=== PATIENT | female | born 1975 | race African-American/Black ===

== ENCOUNTER 2020-09-10 18:26 | Emergency (ER) | payer MEDICARE, MEDICAID ==
[~2020-09-10] VITALS: Ht 165.1 cm; Wt 97.5 kg
[2020-09-10] MEDS ORDERED: HYDROCHLOROTH12.5 M1 PO (19:39)
[2020-09-10 20:13] VITALS: BP 189/94
== END 2020-09-10 20:14 | disposition home or self-care (01) ==
LOC: M.ERS 18:26
DX: M79.605 Pain in left leg (principal); I10 Essential (primary) hypertension; Z86.73 Personal history of transient ischemic attack (TIA), and cerebral infarction without residual deficits

== ENCOUNTER 2021-04-13 15:28 | Inpatient (IN) | payer OTHER, MEDICAID ==
[~2021-04-13] VITALS: Ht 162.6 cm; Wt 103.6 kg
--- NOTE | ~2021-04-13 | CON ---
[address] [address] CONSULTATION Name: SHANNAN ARROYO Room: [place] [address] ADM IN M.R.#: [id number] Admission: 04/13/21 Attend Phys: Germain Goncalves MD Discharge: Date of : 77 Report #: [id number] THIS REPORT FOR: cc: Harrison Martinez MD, Jinming MD Khosla, Parveen K. MD ~ DATE OF CONSULTATION: 04/14/2021 HISTORY OF PRESENT ILLNESS: A 45-year-old female patient who provides some history, but many times, she says "ask my mom." I could not get hold of the patient's mom. 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 In 2014, she had a stroke, which affected the left side of the body. She was in [facility]. There was a blood clot in her head, which was extracted by intervention that time according to her. She made a fairly good recovery and she still has some residual. She started having numbness on the left side. Her history is not very clear, but numbness involved the leg, but to me, she tells me it also involved the trunk and to some extent the face. It has not affected her motor system. REVIEW OF SYSTEMS: She was diagnosed with diabetes and hypercholesterolemia. She was started on some medication. She also has high blood pressure according to her. She started having headache. I do not know if blood pressure medications were changed. When she came in here, her blood pressure was 214/125, it has normalized now. She said she has a mild diabetes. She has a history of hypertension, hyperlipidemia and obesity. This was a relevant 14-point review of systems. She was not complaining of any eye, ENT, cardiac, respiratory, GI, , musculoskeletal, constitutional, dermatological, hematological, psychiatric, throat, allergic symptom associated with present symptomatology. PAST MEDICAL HISTORY: Positive for what looks like a large stroke in the right cerebral hemisphere. FAMILY HISTORY: According to her is negative for any early age stroke. SOCIAL HISTORY: She says she smokes. She was smoking when the stroke happened, but she never stopped that. The record indicates that she underwent CT and CT angiogram, which I will describe later. PHYSICAL EXAMINATION: NEUROLOGIC: Indicate that she was alert, responsive, able to follow simple and complex commands. She believes her memory, fund of knowledge is at her baseline. Cranial nerve examination was mostly unremarkable. I did not see any prominent hemianopsia. Neuromuscular examination indicates some deformity of the right hand, which is present since her strokes. She said the sensation looks different on the left side as compared to the right side, [place] [address] CONSULTATION Name: SHANNAN ARROYO Room: [address] IN [facility]#: [id number] Admission: 04/13/21 Attend Phys: Germain Goncalves MD Discharge: Date of : 77 Report #: [id number] on both sides. It takes her little longer to appreciate the position sense on the left side as compared to the right side, but most of the time, she is able to tell that. There is no cerebellar sign. ABDOMEN: I could not look at the patient's fundus. CARDIAC: Appears noncontributory. LUNGS: No respiratory difficulty. EXTREMITIES: No edema, cyanosis or jaundice. HEENT: Her vision and hearing looks adequate. LABORATORY DATA: Lab indicated a normal white count. DIAGNOSTIC DATA: CT and CT angio was reviewed and there is really no large vessel cut off. IMPRESSION AND PLAN: This patient had a prior stroke. I do not know what the etiology of that stroke was. I do not know how much workup she had in that regard. Present symptoms are not very impressive, they are mainly subjective symptoms. I have ordered an MRI to look at. Rest of the workup will depend upon what we find on those testing and what we find on [facility] testing if we can ever get the [facility] testing. All of it was discussed with the patient in detail and I talked to the patient with the hospitalist also. More than 50 minutes of time was spent taking care of this patient today and majority was spent counseling and coordinating. By: 1100 [id number] Ball MD /nt
[~2021-04-13 15:28] MED LIST: HYDROCHLOROTH12.5 M1 PO
[2021-04-13 15:41] VITALS: BP 214/125
[2021-04-13 16:44] LABS: ABSOLUTE LYMPHOCYTES 0.6 thou/uL (0.8-5.3); ABSOLUTE MONOCYTES 0.9 thou/uL (0.0-1.2); ABSOLUTE NEUTROPHILS 6.5 thou/uL (1.6-8.1); BASOPHILS 0.6 %; EOSINOPHILS 0.6 %; HEMATOCRIT 43.4 % (37.0-47.0); LYMPHOCYTES 7.1 %; MCH 30.9 pg (26.0-34.0); MCHC 34.5 g/dL (28.0-37.0); MCV 89.7 fL (80.0-100.0); MONOCYTES 10.8 %; MPV 8.4 fl. (7.2-11.1); NUCLEATED RBCS 0 /100WBC; PLATELET COUNT* 251 thou/uL (150-400); POLYS 80.9 %; RBC 4.84 mil/uL (4.20-5.00); RDW-CV 13.5 % (10.5-14.5)
[2021-04-13 16:54] LABS: CALCIUM 8.6 mg/dL (8.5-10.1); CREATININE 0.7 mg/dL (0.6-1.3); POTASSIUM 4.3 mmol/L (3.5-5.1)
--- NOTE | 2021-04-13 19:15 | NUR ---
PT IN CT AT THIS TIME.
--- NOTE | 2021-04-13 19:34 | NUR ---
40 ML IV DYE GIVEN IN RT AC, IV INFILTRATED 80ML KERRI DYE GIVEN IN NEW IV, LT AC. CALLED AND NOTIFIED RENETTA OF INFILTRATION, NOTIFIED DAVID OF NEW IV ACCESS. (SHIFT/NURSE CHANGE) -JW
[2021-04-14] VITALS (8 sets, daily range): BP systolic 133–169; BP diastolic 78–108
--- NOTE | 2021-04-14 09:18 | EKG ---
[place] [address] ELECTROCARDIOGRAM REPORT Name: SHANNAN ARROYO Room: [place] [address] ADM IN [facility]#: [id number] Admission: 04/13/21 Attend Phys: Germain Goncalves, Discharge: Date of : 77 Date of Service: 04/13/21 1631 Report #: [id number] THIS REPORT FOR: //name// [facility] ED Test Date: 2021-04-13 Test Time: 16:31:14 Pat Name: SHANNAN ARROYO Department: Room: [facility] Gender: F Relationship Assoc: BARBARA : 1975 Requested By: Senthil Rose Order Number: [id number] MD: Raphael Schroeder Measurements Intervals [place] Rate: 99 P: 75 SD: 170 QRS: 41 QRSD: 91 T: 35 QT: 330 QTc: 424 Interpretive Statements Sinus rhythm Probable left atrial enlargement No previous ECG available for comparison Electronically Signed On 04-14-2021 9:18:44 [employer] by Raphael Schroeder [email or web address] <ELECTRONICALLY SIGNED> By: Raphael Schroeder MD, [facility] 04/14/21 0918 1631 1631 Raphael Schroeder MD, [facility] /EPI
[2021-04-14 11:14] LABS: APTT 33.1 Seconds (25.0-31.3)
[2021-04-14 11:17] LABS: ALBUMIN 3.6 g/dL (3.4-5.0); ALKALINE PHOSPHATASE 72 U/L (46-116); ANION GAP 10 mmol/L (7-16); BUN 9 mg/dL (7-18); CALCIUM 8.6 mg/dL (8.5-10.1); CHLORIDE 101 mmol/L (98-107); CHOLESTEROL 137 mg/dL (<200); CO2 27 mmol/L (21-32); CREATININE 0.7 mg/dL (0.6-1.3); GLUCOSE 188 mg/dL (70-99); HDL CHOLESTEROL 41 mg/dL (>40); LDL CHOLESTEROL 80 mg/dL (<100); POTASSIUM 3.8 mmol/L (3.5-5.1); SERUM ASSESSMENT Clear; SGOT 62 U/L (15-37); SGPT 78 U/L (30-65); SODIUM 138 mmol/L (136-145); TC:HDL 3.3 Ratio (Not establshd); TOTAL BILIRUBIN 0.2 mg/dL (<0.1-1.0); TOTAL PROTEIN 7.8 g/dL (6.4-8.2); TRIGLYCERIDE 82 mg/dL (<150); VLDL 16 mg/dL (<40)
--- NOTE | 2021-04-14 12:58 | 2DMMODE ---
[place] [address] 2 D/M-MODE ECHOCARDIOGRAM Name: SHANNAN ARROYO Angie Room: [place] [address] ADM IN [facility]#: [id number] Admission: 04/13/21 Attend Phys: Germain Goncalves, Discharge: Date of : 77 Date of Service: 04/14/21 1258 Report #: [id number] THIS REPORT FOR: cc: Harrison Martinez MD, Jinming MD Holkins, John M. MD [facility] ~ APPROVED REPORT Study performed: 04/14/2021 11:17:19 EXAM: Comprehensive 2D, Doppler, and color-flow Echocardiogram Patient Location: In-Patient Room #: er Status: routine BSA: 2.06 HR: 71 bpm BP: 133/78 mmHg Rhythm: NSR Other Information Study Quality: Good Indications CVA/TIA Echo Enhancing Agent Indication: Rule out Shunt Agent(s) / Amount(s) Used: Agitated Saline 10 cc 2D Dimensions IVSd: 10.83 (7-11mm) LVOT Diam: 19.23 (18-24mm) LVDd: 39.66 mm PWd: 9.20 (7-11mm) Ascending Ao: 30.20 (22-36mm) LVDs: 26.85 (25-40mm) Aortic Root: 28.92 mm Volumes Left Atrial Volume (Systole) LA ESV Index: 20.10 mL/m2 Aortic Valve AoV Peak Leandro.: 1.44 m/s AO Peak Gr.: 8.25 mmHg LVOT Max P.97 mmHg AO Mean Gr.: 4.66 mmHg LVOT Mean P.34 [place] [address] 2 D/M-MODE ECHOCARDIOGRAM Name: CRUZDIANNA MILANSHANNAN R Room: [address] IN ..#: [id number] Admission: 04/13/21 Attend Phys: Germain Goncalves, Discharge: Date of : 77 Date of Service: 04/14/21 1258 Report #: [id number] LVOT Max V: 1.11 m/s AO V2 VTI: 26.13 cm LVOT Mean V: 0.70 m/s SAVANNA (VTI): 2.43 cm2 LVOT V1 VTI: 21.83 cm Mitral Valve E/A Ratio: 1.35 MV Decel. Time: 198.91 ms MV E Max Leandro.: 0.86 m/s MV PHT: 57.68 ms MVA (PHT): 3.81 cm2 TDI E/Lateral E': 7.82 E/Medial E': 9.56 Medial E' Leandro.: 0.09 m/s Lateral E' Leandro.: 0.11 m/s Pulmonary Valve PV Peak Leandro.: 0.92 m/s PV Peak Gr.: 3.41 mmHg Left Ventricle The left ventricle is normal size. There is normal LV segmental wall motion. There is normal left ventricular wall thickness. Left ventricular systolic function is normal. The left ventricular ejection fraction is within the normal range. LVEF is 55-60%. The left ventricular diastolic function is normal. Right Ventricle The right ventricle is normal size. The right ventricular systolic function is normal. Atria The left atrium size is normal. The interatrial septum is intact with no evidence for an atrial septal defect. The right atrium size is normal. Aortic Valve Mild aortic valve sclerosis. No aortic regurgitation is present. There is no aortic valvular stenosis. Mitral Valve The mitral valve is normal in structure. There is no mitral valve regurgitation noted. No evidence of mitral valve stenosis. Tricuspid Valve The tricuspid valve is normal in structure. [place] [address] 2 D/M-MODE ECHOCARDIOGRAM Name: SHANNAN ARROYO Room: [address] IN [facility]#: [id number] Admission: 04/13/21 Attend Phys: Germain Goncalves, Discharge: Date of : 77 Date of Service: 04/14/21 1258 Report #: [id number] Pulmonic Valve The pulmonary valve is normal in structure. There is no pulmonic valvular regurgitation. Great Vessels The aortic root is normal in size. IVC is normal in size and collapses >50% with inspiration. Pericardium There is no pericardial effusion. <Conclusion> The left ventricle is normal size. There is normal left ventricular wall thickness. Left ventricular systolic function is normal. The left ventricular ejection fraction is within the normal range. LVEF is 55-60%. The left ventricular diastolic function is normal. The right ventricle is normal size. The left atrium size is normal. Mild aortic valve sclerosis. No aortic regurgitation is present. There is no aortic valvular stenosis. The mitral valve is normal in structure. The tricuspid valve is normal in structure. IVC is normal in size and collapses >50% with inspiration. There is no pericardial effusion. There is normal LV segmental wall motion. The interatrial septum is intact with no evidence for an atrial septal defect. <ELECTRONICALLY SIGNED> By: Raphael Schroeder MD, FACC 04/14/21 1258 1258 1258 Raphael Schroeder MD, FACC /INF
[2021-04-14] MEDS ORDERED: METFORMIN HCL500 M3 PO (13:12)
[2021-04-15] MEDS ORDERED: NORVASC5 MG PO (01:24)
[2021-04-15] MEDS ORDERED: LIPITOR20 MG PO (01:29)
[2021-04-15] MEDS ORDERED: ASA81BEC PO (01:30)
[2021-04-15] MEDS ORDERED: TOPROL XL25 MG PO ×2 (01:32→11:43)
[2021-04-15 02:02] VITALS: BP 129/70
[2021-04-15 05:15] LABS: URINE BILIRUBIN NEGATIVE (Negative); URINE BLOOD 2+ (Negative); URINE CLARITY CLEAR; URINE COLOR YELLOW; URINE GLUCOSE-RANDOM NEGATIVE (Negative); URINE KETONES NEGATIVE (Negative); URINE LEUKOCYTES-REFLEX NEGATIVE (Negative); URINE NITRITE-REFLEX NEGATIVE (Negative); URINE PROTEIN NEGATIVE (Negative); URINE SPECIFIC GRAVITY 1.025 (1.005-1.030); URINE UROBILINOGEN 0.2 E.U./dl (0.2-1.0)
[2021-04-15 05:29] LABS: CASTS None Seen /LPF (None Seen); CRYSTALS None Seen /LPF (None Seen); MUCUS 0-3 Light strn/LPF (None Seen); SQUAMOUS 0-3 Few /LPF (0-3); URINE RBC 3-10 Few /HPF (0-2); URINE WBC-REFLEX None Seen /HPF (0-5)
[2021-04-15 06:44] VITALS: BP 152/88
--- NOTE | 2021-04-15 06:51 | NUR ---
PT A&OX4, VSS ON ROOM AIR, IV SALINE LOCKED. SB/SR/ST ON TELE MONITOR - AT PERIODS OF TIME WHILE PATIENT SLEEPING HEART RATE DROPED TO LOW 30s AND QUICKLY REBOUNDED TO 50s+, PT ASYMPTOMATIC. PRN PAIN MED REQUESTED FOR HEADACHE AND GIVEN ORDERED. PT RESTING IN BED.
[2021-04-15 07:08] LABS: GLYCOHEMOGLOBIN (HGB A1C) 6.7 % (4.8-5.6)
[2021-04-15 09:00] VITALS: BP 155/99
[2021-04-15] MEDS ORDERED: MINOCYCLINE HC100 M2 PO (11:43)
[2021-04-15] MEDS ORDERED: LIPITOR 40 MG T40 M1 PO (11:43)
[2021-04-15] MEDS ORDERED: BAYER CHEWABLE81 MG PO (11:43)
[2021-04-15 14:37] VITALS: BP 164/116
[2021-04-15 16:28] VITALS: BP 164/116
--- NOTE | 2021-04-15 16:58 | NUR ---
Attempted assessment x2 (pt out of the room for testing today). Called into the room later this afternoon (no answer). Called pt's significant other Karine Carranza (no answer and no ability to leave a message.
== END 2021-04-15 18:11 | disposition home or self-care (01) | DRG 65 ==
LOC: M.ERS 15:28 → M.TBA-ER 21:20 → M.2W 04-14 19:31
PROVIDERS: Emergency Medicine; Internal Medicine; ADMIT Internal Medicine; ATTEND Internal Medicine
DX: I63.9 Cerebral infarction, unspecified (principal); I16.1 Hypertensive emergency; E66.01 Morbid (severe) obesity due to excess calories; Z20.822 Contact with and (suspected) exposure to COVID-19; E78.5 Hyperlipidemia, unspecified; E11.40 Type 2 diabetes mellitus with diabetic neuropathy, unspecified; J45.909 Unspecified asthma, uncomplicated; R20.2 Paresthesia of skin; I10 Essential (primary) hypertension; F17.210 Nicotine dependence, cigarettes, uncomplicated; Z83.3 Family history of diabetes mellitus; Z68.39 Body mass index [BMI] 39.0-39.9, adult; Z90.710 Acquired absence of both cervix and uterus; Z84.1 Family history of disorders of kidney and ureter; Z71.6 Tobacco abuse counseling

== ENCOUNTER 2021-05-08 23:33 | Inpatient (IN) | payer OTHER, MEDICAID ==
[~2021-05-08] VITALS: Ht 165.1 cm; Wt 100.2 kg
[~2021-05-08 23:33] MED LIST changes: +ASA81BEC PO; +BAYER CHEWABLE81 MG PO; +LIPITOR 40 MG T40 M1 PO; +LIPITOR20 MG PO; +METFORMIN HCL500 M3 PO; +MINOCYCLINE HC100 M2 PO; +NORVASC5 MG PO; +TOPROL XL25 MG PO
[2021-05-08 23:37] VITALS: BP 159/105
[2021-05-09 01:17] LABS: URINE BILIRUBIN NEGATIVE (Negative); URINE BLOOD TRACE (Negative); URINE COLOR YELLOW; URINE GLUCOSE-RANDOM 3+ (Negative); URINE KETONES NEGATIVE (Negative); URINE LEUKOCYTES-REFLEX TRACE (Negative); URINE NITRITE-REFLEX NEGATIVE (Negative); URINE PROTEIN NEGATIVE (Negative); URINE SPECIFIC GRAVITY 1.015 (1.005-1.030); URINE UROBILINOGEN 0.2 E.U./dl (0.2-1.0)
[2021-05-09 01:19] LABS: URINE CLARITY SL HAZY
[2021-05-09 01:33] LABS: ABSOLUTE BASOPHILS 0.1 thou/uL (0.0-0.2); ABSOLUTE EOSINOPHILS 0.2 thou/uL (0.0-0.7); ABSOLUTE LYMPHOCYTES 3.2 thou/uL (0.8-5.3); ABSOLUTE MONOCYTES 0.6 thou/uL (0.0-1.2); ABSOLUTE NEUTROPHILS 4.4 thou/uL (1.6-8.1); BASOPHILS 0.7 %; EOSINOPHILS 2.7 %; HEMATOCRIT 43.4 % (37.0-47.0); HEMOGLOBIN 14.5 gm/dL (12.0-15.0); LYMPHOCYTES 38.2 %; MCHC 33.3 g/dL (28.0-37.0); MCV 89.9 fL (80.0-100.0); MONOCYTES 6.8 %; MPV 8.9 fl. (7.2-11.1); NUCLEATED RBCS 0 /100WBC; PLATELET COUNT* 279 thou/uL (150-400); POLYS 51.6 %; RBC 4.83 mil/uL (4.20-5.00); RDW-CV 12.8 % (10.5-14.5); WBC 8.4 thou/uL (4.0-11.0)
[2021-05-09 01:45] LABS: BACTERIA-REFLEX >30 Many /HPF (None Seen); CASTS None Seen /LPF (None Seen); CRYSTALS None Seen /LPF (None Seen); MUCUS 4-6 Moderate strn/LPF (None Seen); SQUAMOUS 0-3 Few /LPF (0-3); URINE RBC 3-10 Few /HPF (0-2); URINE WBC-REFLEX 6-15 Few /HPF (0-5)
[2021-05-09 01:50] LABS: CALCIUM 8.6 mg/dL (8.5-10.1); CREATININE 0.9 mg/dL (0.6-1.3); POTASSIUM 3.9 mmol/L (3.5-5.1)
[2021-05-09 01:54] LABS: ALBUMIN 3.5 g/dL (3.4-5.0); TOTAL BILIRUBIN 0.3 mg/dL (<0.1-1.0); TOTAL PROTEIN 7.6 g/dL (6.4-8.2)
[2021-05-09 07:30] VITALS: BP 118/89
[2021-05-09 11:45] VITALS: BP 113/68
[2021-05-09 16:35] VITALS: BP 112/70
[2021-05-09 21:00] VITALS: BP 150/94
[2021-05-10] VITALS (7 sets, daily range): BP systolic 103–142; BP diastolic 63–93
[2021-05-10 04:44] LABS: ABSOLUTE EOSINOPHILS 0.2 thou/uL (0.0-0.7); ABSOLUTE LYMPHOCYTES 2.5 thou/uL (0.8-5.3); ABSOLUTE MONOCYTES 0.4 thou/uL (0.0-1.2); BASOPHILS 0.7 %; EOSINOPHILS 3.2 %; HEMATOCRIT 37.8 % (37.0-47.0); HEMOGLOBIN 12.9 gm/dL (12.0-15.0); LYMPHOCYTES 40.9 %; MCH 30.1 pg (26.0-34.0); MCV 88.6 fL (80.0-100.0); MONOCYTES 6.9 %; NUCLEATED RBCS 0 /100WBC; PLATELET COUNT* 253 thou/uL (150-400); POLYS 48.3 %; RBC 4.27 mil/uL (4.20-5.00); RDW-CV 12.7 % (10.5-14.5); WBC 6.2 thou/uL (4.0-11.0)
[2021-05-10 04:57] LABS: ALBUMIN 2.9 g/dL (3.4-5.0); CALCIUM 7.8 mg/dL (8.5-10.1); CREATININE 0.5 mg/dL (0.6-1.3); POTASSIUM 3.5 mmol/L (3.5-5.1); TOTAL BILIRUBIN 0.4 mg/dL (<0.1-1.0); TOTAL PROTEIN 6.6 g/dL (6.4-8.2)
--- NOTE | 2021-05-10 21:53 | CON ---
[address] [address] CONSULTATION Name: SHANNAN ARROYO Room: [address] IN M.R.#: [id number] Admission: 05/09/21 Attend Phys: Nik Pena Discharge: Date of : 77 Report #: [id number] THIS REPORT FOR: cc: Harrison Martinez MD, Jinming MD Vardakis, Gregory DO ~ cc: Harrison Martinez MD DATE OF CONSULTATION: 05/10/2021 Please note at the time of this dictation, the patient was seen and physically examined by myself. REASON FOR CONSULTATION: Abdominal pain, pancreatitis. HISTORY OF PRESENT ILLNESS: This 45-year-old female presented to the Emergency Room after having 3 days of abdominal pain, which became very intense, associated with some nausea but no vomiting, prompting her to come in to be seen. The patient states her pain was in the upper abdomen radiating into her back. She said initially it started in the lower abdomen and worked its way up. The patient used to drink a pint a day, quit at the beginning of the year. She went cold turkey and has also been cutting back on her tobacco use. She had been smoking 2 packs per day and she is down to a pack a day. The patient has never had an episode like this happen before. She was here in the Emergency Room a couple of weeks ago for a headache and was noted to possibly have a TIA, unclear why they sent her home on minocycline, which she took for 10 days and completed that course without any issues. The patient has never had any EGD or colonoscopy done in the past. She denies any issues with reflux and is no longer having any nausea at this time. ALLERGIES: PENICILLIN. MEDICATIONS: Medications from home include metformin, amlodipine, aspirin and atorvastatin. PAST MEDICAL HISTORY: History of a CVA in 2015, hypertension, hyperlipidemia, diabetes, asthma, morbid obesity. PAST SURGICAL HISTORY: Hysterectomy and clot evacuation in 2015 along with receiving TPA. FAMILY HISTORY: Negative for any GI or female cancer. SOCIAL HISTORY: Positive for tobacco use, 1 pack per day, had been 2 packs per day. Alcohol use: She had been drinking a pint a [place] [address] CONSULTATION Name: SHANNAN ARROYO Room: [address]#: [id number] Admission: 05/09/21 Attend Phys: Nik Pena Discharge: Date of : 77 Report #: [id number] 04/03 in which she went cold turkey and has not had any more alcohol since that time. She has been doing this for quite some time. Denies any illegal drug use at this time. REVIEW OF SYSTEMS: Twelve-point review of systems is essentially negative except what is mentioned in the HPI. PHYSICAL EXAMINATION: VITAL SIGNS: Temperature 35.9, pulse 78, respirations 16, blood pressure 110/74. HEART: Regular rate and rhythm. LUNGS: Clear. ABDOMEN: Soft, positive bowel sounds in all 4 quadrants with tenderness noted in the upper quadrants. LABORATORY AND DIAGNOSTIC DATA: Hemoglobin is 12.9, white count of 6.2, platelets 253. Lipase was 439 on admission and down to 165, total bilirubin 0.4, alkaline phosphatase 60, ALT 15, AST 11. GFR was 162. CT of the abdomen and pelvis showed some pancreatic parenchyma, is in normal appearance, very mild hazy retroperitoneal fat stranding around the head of the pancreas, otherwise completely normal. Absent uterus. IMPRESSION: 1. Abdominal pain. 2. Recent antibiotic use, minocycline. 3. History of alcohol abuse, quit 04/03/2021, one pint per day for many years. 4. History of a cerebrovascular accident, recent transient ischemic attack in mid April. 5. Tobacco use, cutting back with 2 packs per day down to 1 pack per day. PLAN: 1. Continue her IV fluids. 2. Ice chips. 3. EGD tomorrow. 4. Further recommendations to be made after Dr. Yousif sees the patient later today. Thank you for allowing us to participate in this patient's care. Please do not hesitate to call with any questions regarding this consult. <ELECTRONICALLY SIGNED> By: Rikki Yousif DO 05/10/21 2153 0938 [id number] Yousif DO /nt
[2021-05-11] VITALS: BP 118/60
[2021-05-11 05:03] LABS: ABSOLUTE EOSINOPHILS 0.1 thou/uL (0.0-0.7); ABSOLUTE MONOCYTES 0.4 thou/uL (0.0-1.2); ABSOLUTE NEUTROPHILS 3.1 thou/uL (1.6-8.1); BASOPHILS 0.3 %; EOSINOPHILS 2.6 %; HEMATOCRIT 35.7 % (37.0-47.0); HEMOGLOBIN 12.3 gm/dL (12.0-15.0); LYMPHOCYTES 34.9 %; MCH 29.9 pg (26.0-34.0); MCHC 34.5 g/dL (28.0-37.0); MCV 86.7 fL (80.0-100.0); MONOCYTES 7.7 %; MPV 8.4 fl. (7.2-11.1); NUCLEATED RBCS 0 /100WBC; PLATELET COUNT* 245 thou/uL (150-400); POLYS 54.5 %; RBC 4.12 mil/uL (4.20-5.00); RDW-CV 12.8 % (10.5-14.5); WBC 5.7 thou/uL (4.0-11.0)
[2021-05-11 05:10] LABS: CALCIUM 7.9 mg/dL (8.5-10.1); CREATININE 0.4 mg/dL (0.6-1.3); POTASSIUM 3.2 mmol/L (3.5-5.1)
[2021-05-11 08:00] VITALS: BP 116/56
--- NOTE | 2021-05-11 11:26 | EKG ---
[place] [address] ELECTROCARDIOGRAM REPORT Name: SHANNAN ARROYO Room: [address] ADM IN M.R.#: [id number] Admission: 05/09/21 Attend Phys: García Katz Discharge: Date of : 77 Date of Service: 05/11/21 1032 Report #: [id number] THIS REPORT FOR: //name// [facility] Test Date: 2021-05-11 Test Time: 10:32:54 Pat Name: SHANNAN ARROYO Department: Room: [address] Gender: F Safety Associate: : 1975 Requested By: Misty Marie Order Number: [id number] Kailyn MD: Raphael Schroeder Measurements Intervals [place] Rate: 61 P: 72 CT: 167 QRS: 31 QRSD: 98 T: 14 QT: 431 QTc: 434 Interpretive Statements Sinus rhythm Anterior infarct, old cannot be excluded Compared to ECG 04/13/2021 16:31:14 Myocardial infarct finding now possible Electronically Signed On 05-11-2021 11:26:31 [employer] by Raphael Schroeder [email or web address] <ELECTRONICALLY SIGNED> By: Raphael Schroeder MD, [facility] 05/11/21 1126 1032 1032 Raphael Schroeder MD, [facility] /EPI
[2021-05-11 16:16] VITALS: BP 136/88
[2021-05-11 21:25] VITALS: BP 121/74
[2021-05-12] VITALS: BP 116/64
[2021-05-12 08:00] VITALS: BP 146/77
[2021-05-12] MEDS ORDERED: LEVOFLOXACIN500 MG PO (09:45)
[2021-05-12 12:42] VITALS: BP 146/77
== END 2021-05-12 15:04 | disposition home or self-care (01) | DRG 439 ==
LOC: M.ERS 23:33 → M.TBA-ER 05-09 03:49 → M.2W 05-10 10:30
PROVIDERS: Internal Medicine Gastroenterology; Personal Emergency Response Attendant; ADMIT Internal Medicine; ATTEND Internal Medicine
PROC: 0DJ08ZZ Inspection of Upper Intestinal Tract, Via Natural or Artificial Opening Endoscopic (ICD-10-PCS; principal; 2021-05-11)
DX: K85.90 Acute pancreatitis without necrosis or infection, unspecified (principal); N39.0 Urinary tract infection, site not specified; E66.01 Morbid (severe) obesity due to excess calories; Z20.822 Contact with and (suspected) exposure to COVID-19; I10 Essential (primary) hypertension; E78.5 Hyperlipidemia, unspecified; J45.909 Unspecified asthma, uncomplicated; E11.65 Type 2 diabetes mellitus with hyperglycemia; K26.9 Duodenal ulcer, unspecified as acute or chronic, without hemorrhage or perforation; B96.89 Other specified bacterial agents as the cause of diseases classified elsewhere; K44.9 Diaphragmatic hernia without obstruction or gangrene; K76.0 Fatty (change of) liver, not elsewhere classified; Z86.73 Personal history of transient ischemic attack (TIA), and cerebral infarction without residual deficits; Z68.36 Body mass index [BMI] 36.0-36.9, adult; Z90.710 Acquired absence of both cervix and uterus; Z88.0 Allergy status to penicillin